=== PATIENT | male | born 1945 | race Caucasian/White ===

== ENCOUNTER 2017-03-07 08:46 | Emergency (ER) | payer MEDICARE, BC ==
[2017-03-07] MEDS ORDERED: Morphine INJ* 4 MG/ML 1 ML CARPUJECT IV ONE ×2 (09:19→09:24)
[2017-03-07] MEDS ORDERED: Ondansetron INJ* 2 MG/ML VIAL ONE (09:19)
[2017-03-07] MEDS ORDERED: Ondansetron INJ* 2 MG/ML VIAL IV ONE (09:24)
[2017-03-07] MEDS ORDERED: NS 0.9% 1000 ML* 1,000 ML IV ONE (09:28)
[2017-03-07] MEDS ORDERED: fentaNYL* 50 MCG/ML 2 ML VIAL (100 MCG VIAL) IV SLOW PU ONE (10:02)
[2017-03-07] MEDS ORDERED: Midazolam* 1 MG/ML 2 ML VIAL (2 MG) IV ONE (10:02)
[2017-03-07] MEDS ORDERED: Naloxone* 0.4 MG/ML 10 ML VIAL ONE (10:11)
[2017-03-07] MEDS ORDERED: Flumazenil* 0.1 MG/ML 5 ML MDV ONE (10:11)
[2017-03-07] MEDS ORDERED: Midazolam* 1 MG/ML 10 ML VIAL (10 MG) IV ONE (10:16)
--- NOTE | 2017-03-07 10:19 | RAD ---
HISTORY: Fall, injury to left shoulder COMPARISONS: None VIEWS: 2, frontal and frontal oblique views of the left shoulder FINDINGS: BONE DENSITY: Normal. BONES: There is no displaced fracture. JOINTS: There is no arthropathy. ALIGNMENT: There is anterior-inferior dislocation of the left humerus with respect to the glenoid fossa. SOFT TISSUES: Unremarkable. OTHER FINDINGS: None. IMPRESSION: LEFT SHOULDER DISLOCATION
--- NOTE | 2017-03-07 11:36 | RAD ---
HISTORY: Status post reduction COMPARISONS: March 07, 2017 at 10:00 AM VIEWS: 3, frontal internal rotation and lateral views of the left shoulder 11:25 AM FINDINGS: BONE DENSITY: Normal. BONES: There is no displaced fracture. JOINTS: There is no arthropathy. ALIGNMENT: There is been interval reduction of the left shoulder dislocation. SOFT TISSUES: Unremarkable. OTHER FINDINGS: None. IMPRESSION: INTERVAL REDUCTION OF LEFT SHOULDER DISLOCATION. NO DISPLACED FRACTURE ON THE SUBMITTED VIEWS. IF SYMPTOMS PERSIST, RECOMMEND REPEAT IMAGING
[2017-03-07 12:23] VITALS: BP 163/73
--- NOTE | 2017-03-08 17:43 | ED ---
Aquiles Messina Angela, scribed for Amarjit Dias MD on 03/07/17 at 0934 . Upper Extremity Pain - HPI Summary HPI Summary: This pt is a 71 y/o male presenting to [facility] via EMS c/o left shoulder pain s/p fall this morning at approximately 08:30. Pt reports he was walking and slipped on ice, subsequently falling on his left shoulder. He denies head strike or LOC. Pt denies neck pain, headache. Pt states he took his metoprolol this morning. - History of Current Complaint Chief Complaint: EDExtremityUpper Stated Complaint: LT ARM INJURY/FALL Time Seen by Provider: 03/07/17 09:06 Hx Obtained From: Patient Mechanism Of Injury: Fall From Height Of: Onset/Duration: Started Hours Ago, Traumatic, Still Present Timing: Lasting Hours Severity Currently: Severe Pain Location: Shoulder - left Aggravating Factor(s): Movement Alleviating Factor(s): Rest Associated Signs & Symptoms: Positive: Negative - Allergies/Home Medications Allergies/Adverse Reactions: Allergies Allergy/AdvReac Type Severity Reaction Status Date / Time No Known Allergies Allergy Verified 03/01/14 14:52 Home Medications: Home Medications Amlodipine Besylate-Benazepril [Lotrel 5-20 mg] 1 cap PO DAILY 03/07/17 [ History Confirmed 03/07/17] Aspirin EC Low Dose* [Ecotrin EC Low Dose 81 MG*] 81 mg PO DAILY 03/07/17 [ History Confirmed 03/07/17] Nitroglycerin TAB 0.4 MG* 0.4 mg SL Q5M PRN 03/07/17 [History Confirmed 03/07/17 ] PMH/Surg Hx/FS Hx/Imm Hx Endocrine/Hematology History: Denies: Hx Diabetes Cardiovascular History: Reports: Hx Hypertension Infectious Disease History: No Infectious Disease History: Denies: History Other Infectious Disease, Traveled Outside the [place] in Last 30 Days - Family History Known Family History: Positive: None - Social History Alcohol Use: None Substance Use Type: Reports: None Smoking Status (MU): Never Smoked Tobacco Review of Systems Negative: Fever, Chills Eyes: Negative ENT: Negative Cardiovascular: Negative Respiratory: Negative Musculoskeletal: Other - left shoulder pain Negative: Other - neck pain Negative: Headache All Other Systems Reviewed And Are Negative: Yes Physical Exam - Summary Physical Exam Summary: VITAL SIGNS: Reviewed. GENERAL: Patient is a well-developed and nourished male. Patient is not in any acute respiratory distress. HEAD AND FACE: No signs of trauma. No ecchymosis, hematomas or skull depressions. No sinus tenderness. EYES: PERRLA, EOMI x 2, No injected conjunctiva, no nystagmus. EARS: Hearing grossly intact. Ear canals and tympanic membranes are within normal limits. MOUTH: Oropharynx within normal limits. NECK: Supple, trachea is midline, no adenopathy, no JVD, no carotid bruit, no c- spine tenderness, neck with full ROM. CHEST: Symmetric, no tenderness at palpation LUNGS: Clear to auscultation bilaterally. No wheezing or crackles. CVS: Regular rate and rhythm, S1 and S2 present, no murmurs or gallops appreciated. ABDOMEN: Soft, non-tender. No signs of distention. No rebound no guarding, and no masses palpated. Bowel sounds are normal. EXTREMITIES: no edema, no cyanosis or clubbing. LUE: Pt has a left shoulder deformity consistent with dislocation. Pt has decreased ROM secondary to pain. NEURO: Alert and oriented x 3. No acute neurological deficits. Speech is normal and follows commands. SKIN: Diaphoretic and warm. Triage Information Reviewed: Yes Vital Signs On Initial Exam: Initial Vitals Temp Pulse Resp BP Pulse Ox 98.5 F 41 22 124/49 91 03/07/17 08:57 03/07/17 08:57 03/07/17 08:57 03/07/17 08:57 03/07/17 08:57 Vital Signs Reviewed: Yes Procedures - Procedure Summary Procedure Summary: PROCEDURE NOTE: Procedural Sedation Indications: LEft shoulder dislocation [place] Protocol: a timeout was performed and the correct patient and site were verified Consent: The risks and benefits of monitored anesthesia care, including the risk of aspiration, deep sedation requiring airway management including possible intubation, nausea and vomiting and the risks of not performing the procedure, including severe pain and inability to complete the procedure, were all discussed with the patient. The alternatives of performing the procedure, including local anesthesia and IV analgesia, also discussed. The patient has a ride home available. ASA Class: II-mild systemic disease Pre-anesthesia evaluation, including history, exam, and informed consent is documented in the ED note above. Monitoring: Continuous monitoring of heart rate, respiratory rate, pulse oximetry and ETCO2. Supplemental oxygen prior to and during procedure via nasal cannula. Resuscitation equipment available at the bedside during sedation. The patient received Versed and Fentanyl and dosages were recorded on the sedation form. The patient was recovered from the sedation without complication or incident. Patient returned to pre-sedation level of awareness. The monitoring was discontinued at this time. Post-anesthesia evaluation: Respiratory function, cardiovascular function, temperature, and mental status did return to pre-anesthetic state. Pain is controlled. - Joint Reduction Joint Reduction Site: shoulder (L) Conscious Sedation: Yes Reduction Attempts: 1 Pre-Procedure NV Exam: Yes Post Joint Reduction Film: joint reduced Diagnostics - Vital Signs Vital Signs Temp Pulse Resp BP Pulse Ox 03/07/17 09:29 18 03/07/17 08:57 98.5 F 41 22 124/49 91 - Laboratory Lab Statement: Any lab studies that have been ordered have been reviewed, and results considered in the medical decision making process. - Radiology Left shoulder XR Xray Interpretation: Positive (See Comments) - IMPRESSION: Left shoulder dislocation. Dr. Dias has reviewed this radiology report. Radiology Interpretation Completed By: Radiologist Left shoulder XR s/p reduction Xray Interpretation: Positive (See Comments) - IMPRESSION: Interval reduction of left shoulder dislocation. No displaced fracture on the submitted views. If symptoms persist, recommend repeat imaging. Dr. Dias had reviewed this radiology report. Radiology Interpretation Completed By: Radiologist - EKG 09:28 Cardiac Rate: Bradycardia EKG Rhythm: Sinus Bradycardia - at 41 bpm EKG Interpretation: No ST elevation. Inverted T wave in V2, V4-V6. Re-Evaluation - Re-Evaluation First Eval Re-Evaluation Time: 10:30 Comment: Joint reduction done by GAGE Motley. Course/Dx - Course Course Of Treatment: This pt is a 71 y/o male presenting to [facility] via EMS c/o left shoulder pain s/p fall this morning at approximately 08:30. Pt reports he was walking and slipped on ice, subsequently falling on his left shoulder. He denies head strike or LOC. Pt denies neck pain, headache. Pt states he took his metoprolol this morning. XR of the left shoulder shows positive shoulder dislocation. In the ED course, the pt was given morphine for the pain. After confirmation of the dislocation, I decided to reduce the dislocation with conscious sedation. The pt agreed and signed the consent. Please see conscious sedation note. He was given fentanyl and versed. We were able to reduce the dislocation without complications. Pt tolerated the procedure well. At this point the pt is alert and oriented x3. The pt has no pain. The XR s/p reduction corroborated the reduction. At this point pt is alert and oriented x3, with normal cognition. Pt will be discharged with son. The pt was given instructions for status post sedation observation. - Diagnoses Differential Diagnosis/HQI/PQRI: Positive: Bursitis, Contusion, Fracture (Closed ), Strain, Sprain Provider Diagnoses: Dislocation of left shoulder joint, status post reduction Discharge - Discharge Plan Condition: Stable Disposition: HOME Patient Education Materials: Shoulder Dislocation (ED), Procedural Sedation (ED ) Referrals: [facility] [place] PHYSICIAN REFERRAL [Outside] Cherelle Bello MD [Primary Care Provider] - 3 Days Additional Instructions: Please follow up with your primary care provider. RETURN TO THE ED FOR ANY WORSENING SYMPTOMS. The documentation as recorded by the Aquiles pizano Angela accurately reflects the service I personally performed and the decisions made by Arun ferrer Walter, MD.
== END 2017-03-07 12:25 | disposition home or self-care (01) ==
LOC: ED 08:46
DX: S43.005A Unspecified dislocation of left shoulder joint, initial encounter (principal); W00.0XXA Fall on same level due to ice and snow, initial encounter; Y93.01 Activity, walking, marching and hiking; Y92.9 Unspecified place or not applicable
CPT/HCPCS: 23650; 93005; 96361; 96374; 96375; 99284; J2250; J2270; J2310; J2405; J3010

== ENCOUNTER 2018-08-01 09:10 | Day surgery (SDC) | payer MEDICARE, BC ==
[~2018-08-01 09:10] MED LIST: Acetaminophen TAB* 325 MG PO PRN; Buffered Lidocaine 1% SYRIN* 1 ML/SYRINGE INTRADERM ONE
[2018-08-01] MEDS ORDERED: Midazolam* 1 MG/ML 2 ML VIAL (2 MG) ONE (11:08)
[2018-08-01] MEDS ORDERED: Phenylephrine OPHTH SOL 2.5%* 2 ML ONE (11:21)
[2018-08-01] MEDS ORDERED: Povidone Iodine 5% OPTH* 30 ML BTL ONE (11:21)
[2018-08-01] MEDS ORDERED: acetaZOLAMIDE TAB* 250 MG ONE (11:21)
[2018-08-01] MEDS ORDERED: Lidocaine 2% EPI 1:200000 MPF*10-20 ML VIAL ONE (11:21)
[2018-08-01] MEDS ORDERED: Ketorolac 0.5% OPHTH (NF) 0.5 % 5 ML BTL ONE (11:21)
[2018-08-01] MEDS ORDERED: Lidocaine 1%** 5 ML VIAL ONE (11:21)
[2018-08-01] MEDS ORDERED: Neomycin/Polymy/Dex OPTH.SUSP* MAXITROL 0.1% 5 ML ONE (11:21)
[2018-08-01] MEDS ORDERED: Cyclopentolate 1% OPTH.SOL* 2 ML BTL ONE (11:21)
[2018-08-01] MEDS ORDERED: Proparacaine 0.5% OPHTH.SOL* 15 ML BTL ONE (11:21)
[2018-08-01 12:15] VITALS: BP 161/57
--- NOTE | 2018-08-01 13:14 | OP ---
DATE OF OPERATION: 08/01/2018. DATE OF : 1945. SURGEON: Patrick Gurrola M.D. PREOPERATIVE DIAGNOSIS: Cataract right eye. POSTOPERATIVE DIAGNOSIS: Cataract right eye. OPERATIVE PROCEDURE: Extracapsular cataract extraction with intraocular lens implant right eye. PROCEDURE: The patient was brought to the operating room after being given 1/2% Alcaine with epineph rine drops in the preoperative area. The eye was prepped and draped in the usual sterile fashion. S terile drape and eyelid speculum were placed. Again, topical 1/2% Alcaine with epinephrine was given . A paracentesis incision was made at the 9 o'clock position with the No.75 blade. Clear cornea inc ision 2.2 x 2.2-mm was created at the 12 o'clock position starting at the anterior limbus using the 2 .2-mm keratome. The anterior chamber was irrigated with 0.4 mL of 1% non-preservative intracameral l idocaine and filled with DisCoVisc. A capsulorrhexis was completed using the cystotome and the Utrat a forceps. Hydrodissection was performed with balanced salt solution. The lens nucleus was removed w ith the Phacoemulsification handpiece without incident. Cortex was removed with the irrigation-aspir ation handpiece. The capsular bag was re-inflated using DisCoVisc and an [id number] 23.5 implant was ins erted with the shooter. The irrigation-aspiration handpiece was used to remove all residual DisCoVis c. The eye was refilled with balanced salt solution and the wound checked and found to be watertight . Topical Maxitrol drops were given. [id number]/[facility] #: [id number]
== END 2018-08-01 12:13 | disposition home or self-care (01) ==
LOC: OREAST 09:10
PROVIDERS: ATTEND Specialist
DX: H25.11 Age-related nuclear cataract, right eye (principal); I10 Essential (primary) hypertension; Z86.711 Personal history of pulmonary embolism; Z86.718 Personal history of other venous thrombosis and embolism; I25.10 Atherosclerotic heart disease of native coronary artery without angina pectoris; Z95.5 Presence of coronary angioplasty implant and graft
CPT/HCPCS: A9270-GY; J2250; V2632

== ENCOUNTER 2018-08-15 07:12 | Day surgery (SDC) | payer MEDICARE, BC ==
[2018-08-15] MEDS ORDERED: Midazolam* 1 MG/ML 2 ML VIAL (2 MG) ONE (08:48)
[2018-08-15 10:10] VITALS: BP 159/58
--- NOTE | 2018-08-15 10:22 | OP ---
OPERATIVE NOTE: DATE OF OPERATION: 08/15/18 DATE OF : [birth year] SURGEON: Patrick Gurrola M.D. PREOPERATIVE DIAGNOSIS: Cataract, left eye. POSTOPERATIVE DIAGNOSIS: Cataract, left eye. OPERATIVE PROCEDURE: Extracapsular cataract extraction with intraocular lens implant, left eye. PROCEDURE: The patient was brought to the operating room after being given 1/2% Alcaine with epineph rine drops in the preoperative area. The eye was prepped and draped in the usual sterile fashion. S terile drape and eyelid speculum were placed. Again, topical 1/2% Alcaine with epinephrine was given . A paracentesis incision was made at the 3 o'clock position with the No.75 blade. Clear cornea inc ision 2.2 x 2.2-mm was created at the 6 o'clock position starting at the anterior limbus using the 2. 2-mm keratome. The anterior chamber was irrigated with 0.4 mL of 1% non-preservative intracameral li docaine and filled with DisCoVisc. A capsulorrhexis was completed using the cystotome and the Utrata forceps. Hydrodissection was performed with balanced salt solution. The lens nucleus was removed wi th the Phacoemulsification handpiece without incident. Cortex was removed with the irrigation-aspira tion handpiece. The capsular bag was re-inflated using DisCoVisc and an [id number] 22 implant was insert ed with the shooter. The irrigation-aspiration handpiece was used to remove all residual DisCoVisc. The eye was refilled with balanced salt solution and the wound checked and found to be watertight. Topical Maxitrol drops were given. [id number]/[facility] #: [id number]
[2018-08-15] MEDS ORDERED: Phenylephrine OPHTH SOL 2.5%* 2 ML ONE (12:23)
[2018-08-15] MEDS ORDERED: Ketorolac 0.5% OPHTH (NF) 0.5 % 5 ML BTL ONE (12:23)
[2018-08-15] MEDS ORDERED: Lidocaine 1% MPF ** 5 ML VIAL ONE (12:23)
[2018-08-15] MEDS ORDERED: Proparacaine 0.5% OPHTH.SOL* 15 ML BTL ONE (12:23)
[2018-08-15] MEDS ORDERED: Neomycin/Polymy/Dex OPTH.SUSP* MAXITROL 0.1% 5 ML ONE (12:23)
[2018-08-15] MEDS ORDERED: Cyclopentolate 1% OPTH.SOL* 2 ML BTL ONE (12:23)
[2018-08-15] MEDS ORDERED: Povidone Iodine 5% OPTH* 30 ML BTL ONE (12:23)
[2018-08-15] MEDS ORDERED: Lidocaine 2% w/ EPI 1:200,000* 20 ML VIAL ONE (12:23)
[2018-08-15] MEDS ORDERED: acetaZOLAMIDE TAB* 250 MG ONE (12:23)
[2018-08-17] MEDS ORDERED: Acetaminophen TAB* 325 MG PO PRN (05:00)
== END 2018-08-15 10:10 | disposition home or self-care (01) ==
LOC: OREAST 07:12
PROVIDERS: ATTEND Specialist
DX: H25.12 Age-related nuclear cataract, left eye (principal); I10 Essential (primary) hypertension; I25.10 Atherosclerotic heart disease of native coronary artery without angina pectoris; Z95.5 Presence of coronary angioplasty implant and graft; E78.5 Hyperlipidemia, unspecified; Z86.711 Personal history of pulmonary embolism
CPT/HCPCS: A9270-GY; J2250; V2632

== ENCOUNTER 2019-02-08 11:47 | Emergency (ER) | payer MEDICARE, BC ==
--- OUTSIDE RECORDS SUMMARY | 2019-02-08 12:17 | XMS REPORT | Continuity of Care Document ---
:1945 External Reference #:[id number] Author Name Angus Gonsalez M.D., [facility], [facility] (transmitted by agent of provider Flory Block) Address [address] 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 Family Medicine Problems Active Problems Provider Date Chronic ischemic heart disease Angus Gonsalez M.D., [facility], Onset: 2013 FASNC Ascending aorta dilatation Angus Gonsalez M.D., [facility], Onset: 01/28/2019 FASRI Atherosclerotic heart disease of Angus Gonsalez M.D., [facility], Onset: 2015 [place] coronary artery without angina FASNC pectoris Social History Type Date Description Comments Sex Unknown Cigarette Use Quit - Age 63 ETOH Use consumes 3-4 beers per week Tobacco Use Start: Unknown End: Patient is a former smoker Unknown Recreational Drug Use Never Used Drugs Smoking Status Reviewed: 01/28/19 Patient is a former smoker Exercise Type/Frequency Bikes 4 times a week Stationary Allergies, Adverse Reactions, Alerts Description No Known Drug Allergies Medications Active Medications SIG Qnty Indications Ordering Provider Date Doxazosin Mesylate 1 by mouth Unknown 4mg every day Tablets Lopressor 1 by mouth 180tabs Unknown 25mg Tablets twice a day Nitrostat one sl q5min up 25tabs Unknown 0.4mg Tablets to 3 doses as Sub needed Aspir-81 1 by mouth Unknown 81mg Tablets DR every day Dapsone 1 by mouth 30tabs Unknown 100mg Tablets every day Amlodipine 1 by mouth Unknown Besylate/Benazepril every day Hydrochloride 10-20mg Capsules Rosuvastatin Calcium 1 by mouth Unknown 20mg every day Tablets Medications Administered in Office Medication SIG Qnty Indications Ordering Provider Date Technetium TC 99M Angus Gonsalez M.D., 01/14/2019 Tetrofosmin, Per Unit Dose COLLIN PATEL Up To 40 Millicuries Injection Technetium TC 99M Angus Gonsalez M.D., 01/14/2019 Tetrofosmin, Per Unit Dose COLLIN PATEL Up To 40 Millicuries Injection Technetium TC 99M Angus Gonsalez M.D., 07/30/2012 Tetrofosmin, Per Unit Dose COLLIN PATEL Up To 40 Millicuries Injection Immunizations Description No Information Available Vital Signs Date Vital Result Comment 01/28/2019 9:15am Height 70 inches 5'10" Weight 234.00 lb with shoes Heart Rate 50 /min BP Systolic Sitting 138 mmHg Rue large cuff BP Diastolic Sitting 62 mmHg Rue large cuff BP Systolic Standing 132 mmHg Rue large cuff BP Diastolic Standing 60 mmHg Rue large cuff Respiratory Rate 16 /min BMI (Body Mass Index) 33.6 kg/m2 Ejection Fraction 55-60% ECHO 12/24/2018 11/28/2017 2:04pm Weight 233.00 lb Heart Rate 89 /min BP Systolic Sitting 190 mmHg Rue reg cuff BP Diastolic Sitting 80 mmHg Rue reg cuff BP Systolic Standing 160 mmHg Rue reg cuff BP Diastolic Standing 70 mmHg Rue reg cuff Results Description No Information Available Procedures Date Code Description Status 01/28/2019 92140 EKG Tracing & Interpretation Completed 01/14/2019 90844 Stress Test Completed 01/14/2019 66892 Myocardial Perfusion Imaging Tomographic (Spect) Multiple Completed Studies 12/24/2018 61083 ECHO Transthoracic, Real-Time 2D With Doppler And Color Completed Flow 12/24/2018 76617 ECHO Transthoracic, Real-Time 2D With Doppler And Color Completed Flow Medical Devices Description No Information Available Encounters Description No Information Available Assessments Date Code Description Provider 01/28/2019 I77.810 Thoracic aortic ectasia Angus Gonsalez M.D., [facility], [facility] 01/14/2019 I25.10 Atherosclerotic heart disease of Angus Gonsalez M.D., [facility], [place] coronary artery without FASNC angina pectoris 12/24/2018 I25.10 Atherosclerotic heart disease of Angus Jonathan Gonsalez M.D., [facility], [place] coronary artery without FASNC angina pectoris 12/24/2018 I25.10 Atherosclerotic heart disease of Traveling ECHO 2 [place] coronary artery without angina pectoris Plan of Treatment 01/28/2019 - Angus Gonsalez M.D., [facility], [id number] Thoracic aortic ectasiaComments:As discussed, I feel your heart and aorta are stable. Please avoid lifting more than 30 lbs and continue to exercise. Please discuss with your PCP regarding other possible causes for your shortness of breath.Follow up: one year after echo Functional Status Description No Information Available Mental Status Description No Information Available Referrals Description No Information Available
--- OUTSIDE RECORDS SUMMARY | 2019-02-08 12:17 | XMS REPORT | Summary of Care ---
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 Aspirin 81 MG Oral Take 81 mg by mouth 0 Active Tab DAILY. nitroglycerin Place 1 Tab under 1 Bottle 1 12/20/2016 Active (NITROSTAT) 0.4 MG tongue EVERY FIVE Sublingual SL MINUTES NEEDED TabIndications: for chest pain. Coronary artery disease, angina presence unspecified, unspecified vessel or lesion type, unspecified whether hoopa or transplanted heart, H/O heart artery stent amLODIPine Take 1 Cap by mouth 90 Cap 2 09/03/2018 Active Besy-Benazepril HCl DAILY. 10-20 MG Oral CapIndications: Benign essential HTN doxazosin (CARDURA) 4 TAKE 1 TABLET BY 90 Tab 1 10/05/2018 Active MG Oral MOUTH EVERY DAY TabIndications: Benign non-nodular prostatic hyperplasia without lower urinary tract symptoms metoprolol TAKE 1 TABLET BY 180 Tab 1 10/05/2018 Active (LOPRESSOR) 25 MG MOUTH TWICE A DAY Oral TabIndications: Benign essential HTN Rosuvastatin Calcium Take 1 Tab by mouth 90 Tab 1 12/25/2018 Active (CRESTOR) 20 MG Oral DAILY. Replaced TabIndications: atorvastatin Coronary artery disease involving hoopa coronary artery of hoopa heart without angina pectoris levofloxacin Take 1 Tab by mouth 7 Tab 0 02/04/2019 Active (LEVAQUIN) 750 MG DAILY 0700 on Empty Oral TabIndications: Stomach. Community acquired pneumonia, unspecified laterality documented as of this encounter (statuses as of 02/04/2019) Active Problems Problem Noted Date Brachial plexopathy 09/06/2017 Dislocation, shoulder closed, left, subsequent encounter 09/04/2017 Dislocated shoulder, left, sequela 06/22/2017 Dislocation, shoulder, left, initial encounter 06/22/2017 Numbness of left hand 06/22/2017 Benign essential HTN 01/07/2015 BMI 32.0-32.9,adult 11/30/2011 Overview: sustained wt reduction with portion control and sustained routine exercise. Set realistic goal of 1# wt reduction /week set 10 week goals. CAD (coronary artery disease) 11/05/2010 Overview: 11/17/09: S/p placement of 2.5 x 23 mm Xience drug eluting stent to the first diagonal branch of the LAD / Dr. Velacso Dyslipidemia 11/05/2010 Atherosclerosis of arteries of extremities 06/21/2010 Hip pain, bilateral 04/21/2010 PAD (peripheral artery disease) 04/21/2010 Overview: 04/19/10: ABIs IMPRESSION: Ankle brachial indices and pulse-volume recordings indicate bilateral lower extremity mild arterial occlusive disease at rest. The patient was able to walk the [facility] hall for approximately five minutes and did stop due to bilateral hip pain. Pulse-volume recordings and ankle brachial indices post-exercise shows no change in the pulse-volume recordings or decreases in the absolute pressures indicating a normal exercise ankle brachial index study. 12/16/09: MR Angio Abdomen and Pelvis IMPRESSION Impression: Occlusion of the right superficial femoral artery. Stenosis or proximal occlusion of the left superficial femoral artery. Mild atherosclerotic aortoiliac disease. Decreased perfusion to the left kidney. Encounter for therapeutic drug monitoring 08/19/2009 History of pulmonary embolism 06/24/2009 History of DVT in adulthood 03/03/2009 Bilateral club feet documented as of this encounter (statuses as of 02/04/2019) Resolved Problems Problem Noted Date Resolved Date Splenic infarction 11/05/2010 10/28/2013 documented as of this encounter (statuses as of 02/04/2019) Immunizations Name Administration Dates Next Due Influenza (IM) Preservative Free 11/18/2013 Influenza Vaccine High Dose 12/10/2018, 12/25/2017, 11/10/2016, 12/11/2014 Influenza Vaccine Whole 11/17/2015 PNEUMOCOCCAL POLYSACCHARIDE VACCINE 12/20/2016 Pneumococcal Conjugate(13 Valent) 12/22/2015 ZOSTER (SHINGRIX) VACCINE 09/11/2018, 07/11/2018 ZOSTER (ZOSTAVAX) VACCINE 07/11/2018 documented as of this encounter Social History Tobacco Use Types Packs/Day Years Used Date Former Smoker Cigarettes 41 Quit: 09/24/2008 Smokeless Tobacco: Never Used Alcohol Use Drinks/Week oz/Week Comments Yes 0.0 occasionally a beer. Sex Assigned at Date Recorded Not on file Job Start Date Occupation Industry Not on file Not on file Not on file Travel History Travel Start Travel End No recent travel history available. documented as of this encounter Last Filed Vital Signs Vital Sign Reading Time Taken Comments Blood Pressure 134/58 02/04/2019 1:45 PM EST Pulse 91 02/04/2019 1:45 PM EST Temperature 37.8 02/04/2019 1:45 PM C (100.1 EST F) Respiratory Rate - - Oxygen Saturation 91% 02/04/2019 2:51 PM EST Inhaled Oxygen Concentration - - Weight 106.1 kg (234 lb) 02/04/2019 1:45 PM EST Height 177.8 cm (5' 10") 02/04/2019 1:45 PM EST Body Mass Index 33.58 02/04/2019 1:45 PM EST documented in this encounter Patient Instructions Patient InstructionsRonda Hilliard NP - 02/04/2019 1:40 PM ESTChest xray today. Start levaquin 750 mg - one tablet once daily for 7 days. (Ask pharmacists about starting this afternoon and then taking again in the morning). Rest and fluids. Hot tea with lemon, honey, salt water gargles, cough drops. Tylenol and motrin for pain fever. Follow up on or Monday. If anything gets worse, instead of better - shortness of breath, chest pain, palpitations - go to the ER. documented in this encounter Progress Notes Ronda Hilliard NP - 02/04/2019 1:40 PM EST PATIENT: Curtis Wick : 1945 DATE OF SERVICE: 02/04/2019 CHIEF COMPLAINT: Chief Complaint Patient presents with Sick cough, coughing up green mucus, sinus congestion, sob comes and goes Subjective HISTORY OF PRESENT ILLNESS: Curtis Wick is a 73-y.o. male. HPI Here for sick visit. He went to a [place] for a game on Friday 01/26, thinks he got sick there. Started to feel worse Monday morning 01/28. Sore throat, cough, productive green. Low grade fever. +Malaise and fatigue. No body aches. Shortness of breath. Congestion. Symptoms not getting better or worse. He thinks he is getting better and then will get worse again. Not sleeping at night because of coughing. 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 He has history of dvt and PE 10 years ago - thought from traveling. On coumadin for a time, not now. No recent travel or surgeries. 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 Vega Unspecified essential hypertension Family History Problem Relation Age of Onset High Cholesterol Father Hypertension Father Stroke Father No Known Problems Sister No Known Problems Child No Known Problems Child No Known Problems Child Diabetes No family history Cancer No family history Anesth Problems No family history Arthritis No family history Clotting Disorder No family history Heart Disease No family history Kidney Disease No family history Thyroid Disease No family history Current Outpatient Medications Medication Sig amLODIPine Besy-Benazepril HCl 10-20 MG Oral Cap Take 1 Cap by mouth DAILY. Aspirin 81 MG Oral Tab Take 81 mg by mouth DAILY. dapsone (AVLOSULFON) 100 MG Oral Tab Take 1 Tab by mouth DAILY. doxazosin (CARDURA) 4 MG Oral Tab TAKE 1 TABLET BY MOUTH EVERY DAY levofloxacin (LEVAQUIN) 750 MG Oral Tab Take 1 Tab by mouth DAILY 0700 on Empty Stomach. metoprolol (LOPRESSOR) 25 MG Oral Tab TAKE 1 TABLET BY MOUTH TWICE A DAY nitroglycerin (NITROSTAT) 0.4 MG Sublingual SL Tab Place 1 Tab under tongue EVERY FIVE MINUTES NEEDED for chest pain. Rosuvastatin Calcium (CRESTOR) 20 MG Oral Tab Take 1 Tab by mouth DAILY. Replaced atorvastatin No current facility-administered medications for this visit. No Known Allergies Social History Socioeconomic History Marital status: Spouse name: Not on file Number of children: Not on file Years of education: Not on file Highest education level: Not on file Occupational History Not on file Social Needs Financial resource strain: Not on file Food insecurity Worry: Not on file Inability: Not on file Transportation needs Medical: Not on file Non-medical: Not on file Tobacco Use Smoking status: Former Smoker Years: 40.00 Types: Cigarettes Last attempt to quit: 09/24/2008 Years since quittin.3 Smokeless tobacco: Never Used Substance and Sexual Activity Alcohol use: Yes Alcohol/week: 0.0 standard drinks Comment: occasionally a beer. Drug use: No Sexual activity: Not Currently Partners: Female Lifestyle Physical activity Days per week: Not on file Minutes per session: Not on file Stress: Not on file Relationships Social connections Talks on phone: Not on file Gets together: Not on file Attends sikhism service: Not on file Active member of club or organization: Not on file Attends meetings of clubs or organizations: Not on file Relationship status: Not on file Intimate partner violence Fear of current or ex partner: Not on file Emotionally abused: Not on file Physically abused: Not on file Forced sexual activity: Not on file Other Topics Concern Back Care Not Asked Bike Helmet Not Asked Blood Transfusions No Caffeine Concern Not Asked Exercise Yes Comment: exercise bike Hobby Hazards Not Asked International Travel Not Asked Service Not Asked Occupational Exposure Not Asked Seat Belt Not Asked Self-Exams Not Asked Sleep Concern Not Asked Special Diet Not Asked Stress Concern Not Asked Weight Concern Not Asked Social History Narrative 3 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 Pets: dogs/cats//chickens/ducks REVIEW OF SYSTEMS: Review of Systems Constitutional: Positive for chills, fever and malaise/fatigue. HENT: Positive for congestion and sore throat. Negative for ear discharge, ear pain and sinus pain. Respiratory: Positive for cough, sputum production and shortness of breath. Cardiovascular: Negative for chest pain and palpitations. Gastrointestinal: Positive for nausea. Negative for vomiting. Musculoskeletal: No body aches Neurological: Positive for weakness. Negative for dizziness and headaches. Objective PHYSICAL EXAM: VITALS: BP 134/58 (BP Location: Left arm, Patient Position: Sitting) | Pulse 91 | Temp 100.1 F (37.8 C) (Tympanic) | Ht 5' 10" (1.778 m) | Wt 234 lb (106.1 kg) | SpO2 91% | BMI 33.58 kg/m Body mass index is 33.58 kg/m . Physical Exam Vitals signs and nursing note reviewed. Constitutional: General: He is not in acute distress. Appearance: Normal appearance. He is well-developed. He is not ill-appearing or toxic-appearing. HENT: Right Ear: Tympanic membrane, ear canal and external ear normal. No mastoid tenderness. Tympanic membrane is not erythematous, retracted or bulging. Left Ear: Tympanic membrane, ear canal and external ear normal. No mastoid tenderness. Tympanic membrane is not erythematous, retracted or bulging. Nose: Nose normal. No mucosal edema. Right Sinus: No maxillary sinus tenderness or frontal sinus tenderness. Left Sinus: No maxillary sinus tenderness or frontal sinus tenderness. Mouth/Throat: Mouth: Mucous membranes are moist. Pharynx: Oropharynx is clear. Uvula midline. No oropharyngeal exudate or posterior oropharyngeal erythema. Tonsils: No tonsillar exudate. Swellin+ on the right. 1+ on the left. Eyes: Conjunctiva/sclera: Conjunctivae normal. Cardiovascular: Rate and Rhythm: Normal rate and regular rhythm. Heart sounds: Murmur present. Systolic murmur present with a grade of 2/6. Pulmonary: Effort: Pulmonary effort is normal. Breath sounds: Decreased breath sounds present. No wheezing, rhonchi or rales. Musculoskeletal: Right lower leg: No edema. Left lower leg: No edema. Lymphadenopathy: Head: Right side of head: No submental, submandibular or tonsillar adenopathy. Left side of head: No submental, submandibular or tonsillar adenopathy. Cervical: No cervical adenopathy. Right cervical: No superficial cervical adenopathy. Left cervical: No superficial cervical adenopathy. Upper Body: Right upper body: No supraclavicular adenopathy. Left upper body: No supraclavicular adenopathy. Neurological: Mental Status: He is alert. Psychiatric: Behavior: Behavior is cooperative. ASSESSMENT / IMPRESSION: ICD-9-CM ICD-10-CM 1. Community acquired pneumonia, unspecified laterality 486 J18.9 XR CHEST 2 VIEW PA AND LATERAL (STANDARD) levofloxacin (LEVAQUIN) 750 MG Oral Tab Plan 1. Community acquired pneumonia, unspecified laterality Chest xray today, treat with levaquin, return for reeval on or Monday. To ER for worsening symptoms or shortness of breath. - XR CHEST 2 VIEW PA AND LATERAL (STANDARD); Future - levofloxacin (LEVAQUIN) 750 MG Oral Tab; Take 1 Tab by mouth DAILY 0700 on Empty Stomach. Dispense: 7 Tab; Refill: 0 Author: Ronda Hilliard NP 02/04/2019 14:52 documented in this encounter Plan of Treatment Date Type Specialty Care Team Description 02/08/2019 Office Visit Family Practice Ronda Hilliard NP [address] [place] [address] [phone] 02/26/2019 Lab Internal Medicine 06/25/2019 Office Visit Family Practice Shalini King MD [address] [place] [address] [phone] Name Type Priority Associated Diagnoses Date/Time XR CHEST 2 VIEW PA Imaging Routine Community acquired 02/04/2019 2:40 PM AND LATERAL pneumonia, unspecified EST (STANDARD) laterality Name Type Priority Associated Diagnoses Order Schedule XR CHEST 2 VIEW PA Imaging Routine Community acquired Expected: 02/04/2019, AND LATERAL pneumonia, unspecified Expires: 02/04/2020 (STANDARD) laterality Health Maintenance Due Date Last Done Comments DTaP/Tdap/Td Vaccines (1956 Tdap) DEPRESSION SCREENING 06/26/2019 06/25/2018 FALL RISK ASSESSMENT 06/26/2019 06/25/2018, 06/25/2018 LIPID DISORDER SCREENING 12/26/2019 12/25/2018, 12/18/2018, 12/18/2017, Additional history exists Colonoscopy 04/23/2023 04/22/2013 (Declined) AAA SCREENING/SURVEILLANCE Completed 12/20/2016, 12/22/2015, 12/19/2014, Additional history exists PNEUMOCOCCAL 65+YRS Completed 12/20/2016, 12/22/2015 HEPATITIS C SCREENING Completed 06/13/2017 HEPATITIS A IMMUNIZATION Aged Out No longer eligible SERIES based on patient's age to complete this topic HPV IMMUNIZATION SERIES Aged Out No longer eligible based on patient's age to complete this topic MENINGOCOCCAL VACCINE IMM Aged Out No longer eligible based on patient's age to complete this topic documented as of this encounter Goals Goal Patient Goal Associated Recent Patient-Stated? Author Type Problems Progress Blood Pressure Blood 134/58 No Christine, < 150/90 Pressure (02/04/2019 Shalini Lambert, 1:45 PM EST) Note: This is an individualized treatment (blood pressure) goal for Curtis Wick: Displayed above (on the left) is your goal for blood pressure control. Your most recent blood pressure is also shown above, on the right. You should try to achieve blood pressures that are lower than your goal listed above (on the left). Weight loss vs. 18 Lifestyle 5 (02/04/2019 1:45 PM No Shalini King, mo max (lbs) >= 10 EST) Note: This is an individualized lifestyle goal for Curtis Wick: Your body mass index (BMI) is more than 30. You should lose weight. A reasonable starting goal is to lose 10 pounds. Displayed above is how many pounds you have lost thus far towards your 10 pound weight loss goal. Take all prescribed medications as Self-management Shalini Rodarte MD directed Note: This is an individualized self-management goal for Curtis Wick: Please take all prescribed medications as directed. 1. Do not skip doses. If you cannot afford your medications, talk with your doctor. 2. Use a pill reminder system such as a pill box if needed. Your pharmacist can help you with this. 3. Contact your Pharmacy 5 days before your medication runs out. If you cannot take your medications for any reasons, talk with your doctor. 4. Please bring all of your medication bottles and inhalers (or a list of all your medications/inhalers) with you to every visit. Potential barriers to meeting all of your care plan goals will continue to be addressed on an ongoing basis. documented as of this encounter Implants Implanted Type Area Clay Miner Device Shelf Model / Identifier Expiration Date Serial / Lot 03.13 Xience - [id number] Diagonal GUALLPA VASCULAR [id number] / Implanted: Qty: 1 on 11/17/2009 at [facility] [id number] / [id number] documented as of this encounter Results Not on filedocumented in this encounter Visit Diagnoses Diagnosis Community acquired pneumonia, unspecified laterality documented in this encounter Insurance Payer Benefit Plan / Subscriber ID Effective Dates Phone Address Type Group MEDICARE MEDICARE PART A & xxxxxxxxxxx 2011-Present Medicare B [employer] xxxxxxxxxxxx 2016-Present [employer] Guarantor Name Account Type Relation to Date of Phone Billing Address Patient Curtis Wick Personal/Family 1945 [address] (Home) [place] [phone] (Work) documented as of this encounter
--- OUTSIDE RECORDS SUMMARY | 2019-02-08 12:17 | XMS REPORT | Summary of Care ---
:1945 Author Organization [facility] Address [address] [facility] [place] [address] Care Team Providers Name Role Phone Shalini King MD Primary Care Provider Reason for Visit Reason Comments Hypertension Encounter Details Date Type Department Care Team Description 12/25/2018 Office Visit [facility] Christine, Benign essential HTN ( Primary Dx); Practice Shalini Lambert MD Coronary artery disease involving [place] coronary artery of [place] heart without angina pectoris; [address] [facility] [place] [address] [place] [address] [phone] Allergies No Known Allergiesdocumented as of this encounter (statuses as of 12/25/2018) Medications Medication Sig Dispensed Refills Start End Date Status Date dapsone Take 1 Tab by 0 Active (AVLOSULFON) 100 mouth DAILY. MG Oral Tab Aspirin 81 MG Oral Take 81 mg by 0 Active Tab mouth DAILY. nitroglycerin Place 1 Tab 1 Bottle 1 Active (NITROSTAT) 0.4 MG under tongue 7 Sublingual SL EVERY FIVE TabIndications: MINUTES Coronary artery NEEDED for chest disease, angina pain. presence unspecified, unspecified vessel or lesion type, unspecified whether [place] or transplanted heart, H/O heart artery stent amLODIPine Take 1 Cap by 90 Cap 2 Active Besy-Benazepril mouth DAILY. 9 HCl 10-20 MG Oral CapIndications: Benign essential HTN doxazosin TAKE 1 TABLET BY 90 Tab 1 Active (CARDURA) 4 MG MOUTH EVERY DAY 9 Oral TabIndications: Benign non-nodular prostatic hyperplasia without lower urinary tract symptoms metoprolol TAKE 1 TABLET BY 180 Tab 1 Active (LOPRESSOR) 25 MG MOUTH TWICE A 9 Oral DAY TabIndications: Benign essential HTN Rosuvastatin Take 1 Tab by 90 Tab 1 Active Calcium (CRESTOR) mouth DAILY. 9 20 MG Oral Replaced TabIndications: atorvastatin Coronary artery disease involving [place] coronary artery of [place] heart without angina pectoris atorvastatin TAKE 1 TABLET BY 90 Tab 1 12/26/19 Discontinued (LIPITOR) 20 MG MOUTH EVERY DAY 9 19 (Side Effect) Oral TabIndications: Dyslipidemia, Mixed hyperlipidemia documented as of this encounter (statuses as of 12/25/2018) Active Problems Problem Noted Date Brachial plexopathy [...] diagonal branch of the LAD / Dr. Hart Dyslipidemia 11/05/2010 Atherosclerosis of arteries of extremities 06/21/2010 Hip pain, bilateral 04/21/2010 PAD (peripheral artery disease) 04/21/2010 Overview: 04/19/10: ABIs IMPRESSION: Ankle brachial indices and pulse-volume recordings indicate bilateral lower extremity mild arterial occlusive disease at rest. The patient was able to walk the [facility] halls for approximately five minutes and did stop [...] as of this encounter (statuses as of 12/25/2018) Resolved Problems Problem Noted Date Resolved Date Splenic infarction 11/05/2010 10/28/2013 documented as of this encounter (statuses as of 12/25/2018) Immunizations Name Administration Dates Next Due Influenza [...] Sign Reading Time Taken Comments Blood Pressure 137/60 12/25/2018 8:22 AM EST Pulse 60 12/25/2018 8:01 AM EST Temperature - - Respiratory Rate - - Oxygen Saturation 91% 12/25/2018 8:01 AM EST Inhaled Oxygen Concentration - - Weight 108.4 kg (239 lb) 12/25/2018 8:01 AM EST Height 177.8 cm (5' 10") 12/25/2018 8:01 AM EST Body Mass Index 34.29 12/25/2018 8:01 AM EST documented in this encounter Patient Instructions Patient InstructionsShalini King MD - 12/25/2018 8:00 AM ESTStop atorvastatin and switch to Rosuvastatin Please check fasting laboratory tests in 2 months. Hopefully you will have less muscle fatigue. Continue your other medications. Follow a low salt diet, minimize caffeine. documented in this encounter Progress Notes Shalini King MD - 12/25/2018 8:00 AM EST Nursing Notes: Ronda Prabhakar LPN 12/25/2018 8:09 AM Signed Chief Complaint Patient presents with Hypertension Principal Developer: Dr Welch. Embedder: Dr Gonsalez Vascular: Dr William Chief Complaint: Curtis Wick is a 73-y.o. male who presents for hypertension History of Present Illness/ROS: Here for follow up of hypertension and elevated fasting glucose. I increased his amlodipine/benazepril in past visits Impaired fasting glucose : Latest A1C is totally normal, no diabetes nor prediabetes Yesterday he had an echocardiogram and has an upcoming stress test, then sees Dr Gonsalez in a week. He has shortness of breath with exertion He is using his exercise bike. Knees ache often also Review of Systems - General ROS: negative for - chills or fever Respiratory ROS: no cough, shortness of breath, or wheezing Cardiovascular ROS: no chest pain or dyspnea on exertion Gastrointestinal ROS: negative for - abdominal pain or change in bowel habits Neurological ROS: no TIA or stroke symptoms Muscles tire easily on atorvastatin He has gotten both Shingrix at his pharmacy Lab on 12/18/2018 Component Date Value Ref Range Status Glycohemoglobin A1C 12/18/2018 4.2 <=5.6 % Final Normal*: <=5.6% Pre Diabetes* Risk: 5.7-6.4% Diabetes* Risk: >=6.5% Glycemic Goals for Adult Diabetes*: <7.0% *(Adult Ranges)[place] [employer], Standards of Medical Care in Diabetes, 2018 Cholesterol 12/18/2018 119 <200 mg/dl Final HDL Cholesterol 12/18/2018 41 >40 mg/dl Final Triglycerides 12/18/2018 74 <150 mg/dl Final LDL Cholesterol 12/18/2018 63 <100 MG/DL Final Cholesterol / HDL Ratio 12/18/2018 2.9 RATIO Final LDL / HDL Ratio 12/18/2018 1.5 Final Non-HDL Cholesterol 12/18/2018 78 0 - 130 MG/DL Final Sodium 12/18/2018 142 134 - 145 mmol/L Final Potassium 12/18/2018 4.6 3.5 - 5.1 mmol/L Final Chloride 12/18/2018 110* 98 - 107 mmol/L Final CO2 12/18/2018 22 22 - 30 mmol/L Final Calcium 12/18/2018 8.8 8.3 - 10.1 mg/dl Final Albumin 12/18/2018 3.9 3.5 - 5.0 g/dl Final BUN 12/18/2018 23* 9 - 20 mg/dl Final Creatinine 12/18/2018 1.2 0.8 - 1.5 mg/dl Final Glucose 12/18/2018 121* 70 - 99 mg/dl Final Total Protein 12/18/2018 7.0 6.3 - 8.2 g/dl Final Total Bilirubin 12/18/2018 0.9 0.0 - 1.1 MG/DL Final AST 12/18/2018 42 17 - 59 U/L Final ALT 12/18/2018 45 21 - 72 U/L Final Alkaline Phosphatase 12/18/2018 57 40 - 150 U/L Final eGFR 12/18/2018 60 See Interpretation Below ml/min/1.73ml Sq Final Estimated GFR Interpretation: Above 60ml/min/1.73m2 = Normal Renal Function 30-59 ml/min/1.73m2 = Stage 3 Chronic Kidney Disease 15-29 ml/min/1.73m2 = Stage 4 Chronic Kidney Disease Less than 15 ml/min/1.73m2 = Stage 5 Chronic Kidney Disease The GFR value is calculated using the Modification of Diet in Renal Disease ( MDRD) Study Equation which can be found at: https://www.kidney.org/content/tzhs-fmioh-zcupimjw BUN/Creatinine Ratio 12/18/2018 19 6 - 22 RATIO Final Anion Gap 12/18/2018 10 3 - 11 mmol/L Final A/G Ratio 12/18/2018 1.3 0.8 - 2.0 ratio Final WBC Count 12/18/2018 6.60 4.23 - 9.07 K/uL Final RBC Count 12/18/2018 4.18* 4.30 - 5.89 M/UL Final Hemoglobin 12/18/2018 13.1* 13.7 - 17.5 g/dL Final Hematocrit 12/18/2018 42.1 40.1 - 51.0 % Final MCV 12/18/2018 100.7* 79.0 - 92.2 FL Final MCH 12/18/2018 31.3 25.7 - 32.2 PG Final MCHC 12/18/2018 31.1* 32.3 - 36.5 g/dL Final Platelet Count 12/18/2018 198 163 - 337 K/uL Final MPV 12/18/2018 10.0 9.4 - 12.4 FL Final RDW 12/18/2018 14.1 11.6 - 14.4 % Final Neutrophil % 12/18/2018 70.8* 34.0 - 67.9 % Final Lymphocyte % 12/18/2018 15.3* 21.8 - 53.1 % Final Monocyte % 12/18/2018 9.2 5.3 - 12.2 % Final Eosinophil % 12/18/2018 3.3 0.8 - 7.0 % Final Basophil % 12/18/2018 0.6 0.2 - 1.2 % Final nRBC % 12/18/2018 0.0 0.0 - 0.2 % Final Neutrophil # 12/18/2018 4.67 1.78 - 5.38 K/UL Final Lymphocyte # 12/18/2018 1.01* 1.32 - 3.57 K/UL Final Monocyte # 12/18/2018 0.61 0.30 - 0.82 K/UL Final Eosinophil # 12/18/2018 0.22 0.04 - 0.54 K/UL Final Basophil # 12/18/2018 0.04 0.01 - 0.08 K/UL Final Immature Gran % 12/18/2018 0.8* 0.0 - 0.4 % Final Immature Gran # 12/18/2018 0.05* 0.00 - 0.03 K/uL Final NRBC # 12/18/2018 0.00 0.00 - 0.12 K/uL Final Past Medical History: Diagnosis Date Bilateral club feet BMI 32.0-32.9,adult CAD (coronary artery disease) 11/17/2009 stenting of diagnal lot# [id number] Dr Gonsalez, [place] Coronary artery disease has cardiac stent, placed 2009 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 Vega Unspecified essential hypertension Past Surgical History: Procedure Laterality Date ANGIOPLASTY STENT CORONARY VIA GROIN 11/17/2009 Procedure:ANGIOPLASTY STENT CORONARY; Surgeon:AARON HART; Location:[facility] ; Laterality:N/A; CORONARY ART/ATTEMPTED VIA RADIAL CHANGE SITE TORT FEMORAL/ SUZANNE TO DIAG/RT FEMORAL ART & PERCLOSE NASAL DX PROC NEC age 3-4, nasal surgery UNLISTED PROCEDURE,MUSCULOSKELE born with double club feet: bilateral foot surgery VASECTOMY Current Outpatient Medications: amLODIPine Besy-Benazepril HCl 10-20 MG Oral Cap, Take 1 Cap by mouth DAILY., Disp: 90 Cap, Rfl: 2 Aspirin 81 MG Oral Tab, Take 81 mg by mouth DAILY., Disp: , Rfl: dapsone (AVLOSULFON) 100 MG Oral Tab, Take 1 Tab by mouth DAILY. , Disp : , Rfl: doxazosin (CARDURA) 4 MG Oral Tab, TAKE 1 TABLET BY MOUTH EVERY DAY, Disp: 90 Tab, Rfl: 1 metoprolol (LOPRESSOR) 25 MG Oral Tab, TAKE 1 TABLET BY MOUTH TWICE A DAY, Disp: 180 Tab, Rfl: 1 nitroglycerin (NITROSTAT) 0.4 MG Sublingual SL Tab, Place 1 Tab under tongue EVERY FIVE MINUTES NEEDED for chest pain., Disp: 1 Bottle, Rfl: 1 Rosuvastatin Calcium (CRESTOR) 20 MG Oral Tab, Take 1 Tab by mouth DAILY. Replaced atorvastatin, Disp: 90 Tab, Rfl: 1 No Known Allergies Social History Socioeconomic History Marital status: Spouse name: Not on file Number of children: Not on file Years of education: Not on file Highest education level: Not on file Occupational History Not on file Social Needs Financial resource strain: Not on file Food insecurity: Worry: Not on file Inability: Not on file Transportation needs: Medical: Not on file Non-medical: Not on file Tobacco Use Smoking status: Former Smoker Years: 40.00 Types: Cigarettes Last attempt to quit: 09/24/2008 Years since quittin.2 Smokeless tobacco: Never Used Substance and Sexual Activity Alcohol use: Yes Alcohol/week: 0.0 standard drinks Comment: occasionally a beer. 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 Pets: dogs/cats//chickens/ducks Family History Problem Relation Age of Onset [...] family history Thyroid Disease No family history Chest CT screen 12/27/16: Unremarkable low-dose screening CT thorax. Lung-RADS Assessment Category: 1. - Negative XR LUMBAR SPINE MIN 4 VIEWS (STANDARD) Narrative: Procedure(s): XR LUMBAR SPINE MIN 4 VIEWS (STANDARD) Date of service: 06/25/2018 8:32 AM Provided clinical information: 73 years, Male, "low back pain" Procedure and materials: 5 views of the lumbar spine Comparison studies: None. Observations: Mild degenerative narrowing of the right sacroiliac joint. Incidental note of atherosclerotic changes in the abdominal aorta. Some retained fecal material in the colon. No focal osseous lesions. No fractures or subluxation. Impression: IMPRESSION: Mild degenerative narrowing of the right sacroiliac joint. Urgency: Routine. This is a routine medical imaging report. Recommendation: No specific imaging recommendation. Signed by Abena Green on 06/29/2018 11:08 AM PHYSICAL EXAMINATION: BP 137/60 (BP Location: Left arm, Patient Position: Sitting) | Pulse 60 | Ht 5 ' 10" (1.778 m) | Wt 239 lb (108.4 kg) | SpO2 91% | BMI 34.29 kg/m Physical Examination: General appearance - alert, well appearing, and in no distress Mental status - alert, oriented to person, place, and time, normal mood, behavior, speech, dress, motor activity, and thought processes Eyes - pupils equal, sclera anicteric Neck - supple, no cervical or supraclavicular adenopathy, carotids upstroke normal bilaterally, no bruits, thyroid exam: thyroid is normal in size without nodules or tenderness, no neck masses palpated. Chest/Lungs - clear to auscultation, no wheezes, rales or rhonchi, symmetric air entry, good aeration Heart - normal rate, regular rhythm, normal S1, S2, no murmurs, rubs, clicks or gallops Abdomen - soft, non tender Neurological - alert, oriented, normal speech, no gross focal findings or movement disorder noted, normal gait Extremities - dorsalis pedis pulses normal, trace to trace left ankle pedal edema, ASSESSMENT/PLAN: ICD-9-CM ICD-10-CM 1. Benign essential HTN 401.1 I10 2. Coronary artery disease involving [place] coronary artery of [place] heart without angina pectoris 414.01 I25.10 Rosuvastatin Calcium (CRESTOR) 20 MG Oral Tab LIPID PROFILE COMPREHENSIVE METABOLIC PANEL 3. Muscle fatigue 729.89 M62.89 CREATINE KINASE Hypertension control is fairly good, continue to monitor A1C was normal We will see if his muscle fatigue improves by switching statin from atorvastatin to rosuvastatin. Recheck fasting laboratory tests in 2 months. 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 Curtis requested a note that he can no longer work so his son can use thisas a medical reason to leave his current job. I agree mcc is a good idea, but I cannot say it is due to disability today. I explained that with no new problems or acute injury, that is not something I can just so. He can see what Dr Gonsalez says from a cardiac standpoint, however. Patient Instructions Stop atorvastatin and switch to Rosuvastatin Please check fasting laboratory tests in 2 months. Hopefully you will have less muscle fatigue. Continue your other medications. Follow a low salt diet, minimize caffeine. Author: Shalini King MD 12/25/2018 08:24 documented in this encounter Plan of Treatment Date Type Specialty Care Team Description 02/26/2019 Lab Internal Medicine 06/25/2019 Office Visit [facility] Shalini King MD [address] [place] [address] [phone] Name Type Priority Associated Diagnoses Order Schedule LIPID PROFILE Lab Routine Coronary artery disease Expected: 02/24/2019 involving [place] (Approximate), coronary artery of Expires: 12/26/2019 [place] heart without angina pectoris COMPREHENSIVE METABOLIC Lab Routine Coronary artery disease Expected: 02/24 PANEL involving [place] (Approximate), coronary artery of Expires: 12/26/2019 [place] heart without angina pectoris CREATINE KINASE Lab Routine Muscle fatigue Expected: 02/24/2019 (Approximate), Expires: 12/26/2019 Health Maintenance Due Date Last Done Comments DEPRESSION SCREENING 06/26/2019 06/25/2018 FALL RISK ASSESSMENT 06/26/2019 06/25/2018, 06/25/2018 LIPID DISORDER SCREENING 12/26/2019 12/25/2018, 12/18/2018, 12/18/2017, Additional history exists COLONOSCOPY SCREENING 04/23/2023 04/22/2013 (Declined) AAA SCREENING/SURVEILLANCE Completed 12/20/2016, 12/22/2015, 12/19/2014, Additional history exists PNEUMOCOCCAL 65+YRS Completed 12/20/2016, 12/22/2015 HEPATITIS C SCREENING Completed 06/13/2017 HPV IMMUNIZATION SERIES Aged Out No longer eligible based on patient's age to complete this topic MENINGOCOCCAL VACCINE IMM Aged Out No longer eligible based on patient's age to complete this topic documented as of this encounter Goals Goal Patient Goal Associated Recent Patient-Stated? Author Type Problems Progress Blood Pressure Blood 137/60 No Christine, < 150/90 Pressure (12/25/2018 Shalini Lambert, 8:22 AM EST) Note: This is an individualized treatment (blood pressure) goal for Curtis Wick: Displayed above (on the left) is your goal for blood pressure control. Your most recent blood pressure is also shown above, on the right. You should try to achieve blood pressures that are lower than your goal listed above (on the left). Weight loss vs. 18 Lifestyle 0 (12/25/2018 8:01 AM Shalini Rodarte mo max (lbs) >= 10 EST) Note: This is an individualized lifestyle goal for Curtis Wick: Your body mass index (BMI) is more than 30. You should lose weight. A reasonable starting goal is to lose 10 pounds. Displayed above is how many pounds you have lost thus far towards your 10 pound weight loss goal. Take all prescribed medications as Self-management No Shalini King MD directed Note: This is an individualized [...] of this encounter Implants Implanted Type Area International Account Manager Device Shelf Model / Identifier Expiration Date Serial / Lot 2 [employer]ience - [id number] Diagonal GUALLPA VASCULAR [id number] / Implanted: Qty: 1 on 11/17/2009 at [facility] [id number] / [id number] documented as of this encounter Results Not on filedocumented in this encounter Visit Diagnoses Diagnosis Benign essential HTN - Primary Essential hypertension, benign Coronary artery disease involving [place] coronary artery of [place] heart without angina pectoris Muscle fatigue Other musculoskeletal symptoms referable to limbs documented in this encounter Insurance Payer Benefit Plan / Subscriber ID Effective Dates Phone Address Type Group MEDICARE MEDICARE PART A & xxxxxxxxxxx 2011-Present Medicare B [employer] xxxxxxxxxxxx 2016-Present [employer] Guarantor Name Account Type Relation to Date of Phone Billing Address Patient Curtis Wick Personal/Family 1945 [address] (Home) [place], [place] [phone] [id number] (Work) documented as of this encounter
[2019-02-08 12:55] LABS: ABS Eosinophils 0.2 10^3/ul (0-0.6); ABS Lymphocytes 1.1 10^3/ul (1.0-4.8); ABS Monocytes 0.7 10^3/ul (0-0.8); ABS Neutrophils 6.7 10^3/ul (1.5-7.7); Hematocrit 35 % (42-52); Hemoglobin 11.6 g/dL (14.0-18.0); Lymphocyte % 12.2 %; Mean Corpuscular HGB Conc 33 g/dL (31-36); Mean Corpuscular Hemoglobin 31 pg (27-31); Mean Corpuscular Volume 94 fL (80-94); Platelet Count 245 10^3/uL (150-450); Red Blood Count 3.75 10^6 /uL (4.18-5.48); Red Cell Distribution Width 15 % (10-15); White Blood Count 8.7 10^3/uL (3.5-10.8)
--- NOTE | 2019-02-08 13:06 | ED ---
Shortness of Breath - HPI Summary HPI Summary: Patient is a 73 y/o M presenting to the ED for a chief complaint of shortness of breath for the last week. Patient is present with his son. Patient notes having a productive cough with yellow phlegm and shortness of breath with exertion which has been improving. He denies chest pain or fever. He denies any aggravating or alleviating factors. Patient was previously seen at [facility] on 02/04/19 and had a chest x-ray performed that was read on 02/08 that showed pneumonia. On 02/04/19, patient was prescribed Levaquin for 7 days which he has been taking. His PCP recommended he come to ED for abnormal CXR. He state since starting abx his symptoms have improved. PMHx is significant for HTN and HLD, but he denies a history of COPD or asthma. He is a former smoker. - History of Current Complaint Chief Complaint: EDShortnessOfBreath Time Seen by Provider: 02/08/19 12:27 Hx Obtained From: Patient Onset/Duration: Sudden Onset, Lasting Days, Still Present Timing: Constant Current Severity: Moderate Dyspnea At: Exertion Aggravating Factors: Nothing Alleviating Factors: Nothing Associated Signs & Symptoms: Cough (Productive) - Allergy/Home Medications Allergies/Adverse Reactions: Allergies Allergy/AdvReac Type Severity Reaction Status Date / Time No Known Allergies Allergy Verified 02/08/19 12:04 Home Medications: Home Medications Levofloxacin TAB* [Levaquin TAB*] 750 mg PO DAILY 02/08/19 [History Confirmed ] Rosuvastatin (NF) [Crestor (NF)] 20 mg PO DAILY 02/08/19 [History Confirmed 04/25] PMH/Surg Hx/FS Hx/Imm Hx Previously Healthy: Yes Endocrine/Hematology History: Denies: Hx Diabetes Cardiovascular History: Reports: Hx Coronary Artery Disease, Hx Hypercholesterolemia, Hx Hypertension Denies: Hx Pacemaker/ICD Respiratory History: Reports: Hx Pulmonary Embolism - 2009 Denies: Hx Asthma, Hx Chronic Obstructive Pulmonary Disease (COPD) History: Denies: Hx Renal Disease Sensory History: Reports: Hx Cataracts - both eye, Hx Contacts or Glasses - reading glasses Denies: Hx Legally Blind, Hx Deafness, Hx Hearing Aid Opthamlomology History: Reports: Hx Cataracts - both eye, Hx Contacts or Glasses - reading glasses Denies: Hx Legally Blind EENT History: Denies: Hx Deafness Psychiatric History: Denies: Hx Panic Disorder - Cancer History Hx Chemotherapy: No - Surgical History Surgical History: Yes Surgery Procedure, Year, and Place: HEART STENT 2009 [facility]. 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 nose surgery as a baby Hx Anesthesia Reactions: No Infectious Disease History: No Infectious Disease History: Denies: History Other Infectious Disease, Traveled Outside the [place] in Last 30 Days - Family History Known Family History: Negative: Cardiac Disease, Hypertension, Diabetes - Social History Occupation: Employed Full-time Alcohol Use: Weekly Alcohol Amount: few beers a week Hx Substance Use: No Substance Use Type: Reports: None Hx Tobacco Use: Yes Smoking Status (MU): Former Smoker Amount Used/How Often: smoked for 40-45 years, 2 ppd Review of Systems Negative: Fever Negative: Chest Pain Positive: Shortness Of Breath - With exertion, Cough - Productive with yellow phlegm All Other Systems Reviewed And Are Negative: Yes Physical Exam - Summary Physical Exam Summary: Constitutional: Well-developed, Well-nourished, Alert. (-) Distressed Skin: Warm, Dry HENT: Normocephalic; Atraumatic Eyes: Conjunctiva normal Neck: Musculoskeletal ROM normal neck. (-) JVD, (-) Stridor, (-) Nuchal rigidity Cardio: Rhythm regular, rate normal, Heart sounds normal; Intact distal pulses; Radial pulses are 2+ and symmetric. (-) Murmur Pulmonary/Chest wall: Effort normal. (-) Respiratory distress, (-) Wheezes, (-) Rales. Left lower lobe rhonchi. Abd: Soft, (-) tenderness, (-) Distension, (-) Guarding, (-) Rebound Musculoskeletal: (-) Edema Lymph: (-) Cervical adenopathy Neuro: Alert, Oriented x3 Psych: Mood and affect Normal Triage Information Reviewed: Yes Vital Signs On Initial Exam: Initial Vitals Temp Pulse Resp BP Pulse Ox 98.5 F 70 18 181/75 92 02/08/19 12:00 02/08/19 12:00 02/08/19 12:00 02/08/19 12:00 02/08/19 12:00 Vital Signs Reviewed: Yes Procedures - Sedation Patient Received Moderate/Deep Sedation with Procedure: No Diagnostics - Vital Signs Vital Signs Temp Pulse Resp BP Pulse Ox 02/08/19 12:00 98.5 F 70 18 181/75 92 - Laboratory Lab Results: Lab Results 02/08/19 Range/Units 12:42 WBC 8.7 (3.5-10.8) 10^3/uL RBC 3.75 L (4.18-5.48) 10^6 /uL Hgb 11.6 L (14.0-18.0) g/dL Hct 35 L (42-52) % MCV 94 (80-94) fL MCH 31 (27-31) pg MCHC 33 (31-36) g/dL RDW 15 (10-15) % Plt Count 245 (150-450) 10^3/uL MPV 7.0 L (7.4-10.4) fL Neut % (Auto) 77.0 % Lymph % (Auto) 12.2 % Harmon % (Auto) 8.3 % Eos % (Auto) 2.0 % Baso % (Auto) 0.5 % Absolute Neuts (auto) 6.7 (1.5-7.7) 10^3/ul Absolute Lymphs (auto) 1.1 (1.0-4.8) 10^3/ul Absolute Monos (auto) 0.7 (0-0.8) 10^3/ul Absolute Eos (auto) 0.2 (0-0.6) 10^3/ul Absolute Basos (auto) 0.0 (0-0.2) 10^3/ul Absolute Nucleated RBC 0.0 10^3/ul Nucleated RBC % 0.0 Result Diagrams: 02/08/19 12:42 02/08/19 12:42 Lab Statement: Any lab studies that have been ordered have been reviewed, and results considered in the medical decision making process. - Radiology Chest X-ray Radiology Interpretation Completed By: Radiologist Summary of Radiographic Findings: Chest X-ray IMPRESSION: 1. LEFT LOWER LOBE INFILTRATE AND SMALL PLEURAL EFFUSION. RECOMMEND FOLLOW-UP CHEST X-RAYS TO RESOLUTION. 2. COPD. Reviewed by Dr. Sage. Re-Evaluation - Re-Evaluation First Eval Re-Evaluation Time: 13:40 Change: Unchanged Comment: At 13:40, patient is ambulating with an oxygen saturation of 89%. He states he does not feel short of breath. Patient is agreeable to a duoneb. Course/Dx - Course Course Of Treatment: 73-year-old male recently diagnosed pneumonia presents with cough. - Physical for mild hypoxia at 92%. On ambulation dec to 89% but denies SOB. Chest x-ray shows a left lower lobe pneumonia and small pleural effusion. Labs w/o leukocytosis. CUR 65 score: 1. - given duoneb, O2 sat up to 96%. Feels fine, would like to leave. Sent home w albuterol Rx PRN cough/ wheezing. - will follow up w PCP for follow up XRay - Diagnoses Provider Diagnoses: Pneumonia Discharge ED - Sign-Out/Discharge Documenting (check all that apply): Patient Departure - Discharge - Discharge Plan Condition: Stable Disposition: HOME Prescriptions: Albuterol HFA INHALER* [Ventolin HFA Inhaler*] 2 puff INH Q4H PRN 30 Days #1 mdi PRN Reason: Wheezing Patient Education Materials: Bacterial Pneumonia (DC) Referrals: Shalini King MD [Primary Care Provider] - Additional Instructions: You were seen in the emergency department for pneumonia. Your chest x-ray showed a left-sided pneumonia. Please get a repeat chest x-ray in one week. Please continue your antibiotics. Use an inhaler as needed. Please follow up with your primary care doctor in next 2-3 days and return to emergency department for trouble breathing, continued fevers, chest pain, or worsening or concerning symptoms. It was a pleasure taking care of you today. - Billing Disposition and Condition Condition: STABLE Disposition: Home - Attestation Statements Document Initiated by Phuc: Yes Documenting Tiffaniibe: Karen Marie Provider For Whom Phuc is Documenting (Include Credential): Britney Sage MD Scribe Attestation: I, Karen Marie, scribed for Britney Sage MD on 02/08/19 at 1453. Scribe Documentation Reviewed: Yes Provider Attestation: The documentation as recorded by the Karen pizano accurately reflects the service I personally performed and the decisions made by me, Britney Sage MD Status of Scribe Document: Viewed
[2019-02-08 13:18] LABS: Albumin 3.6 g/dL (3.2-5.2); Albumin/Globulin Ratio 1.1 (1-3); BUN/Creatinine Ratio 19.6 (8-20); Calcium 8.6 mg/dL (8.6-10.3); EGFR African American 97.9 (>60); EGFR Non-African American 80.9 (>60); Globulin 3.2 g/dL (2-4); Potassium 4.2 mmol/L (3.5-5.0); Total Bilirubin 0.9 mg/dL (0.2-1.0); Total Protein 6.8 g/dL (6.4-8.9)
[2019-02-08] MEDS ORDERED: Albuterol/Ipratropium NEB.SOL* Albuterol 2.5 MG/Ipratropium 0.5 MG 3 ML INH ONE (13:40)
[2019-02-08 15:38] VITALS: BP 172/82
== END 2019-02-08 15:15 | disposition home or self-care (01) ==
LOC: ED 11:47
DX: J18.9 Pneumonia, unspecified organism (principal); R06.02 Shortness of breath; R05 Cough; I25.10 Atherosclerotic heart disease of native coronary artery without angina pectoris; E78.00 Pure hypercholesterolemia, unspecified; I10 Essential (primary) hypertension; Z95.5 Presence of coronary angioplasty implant and graft; Z87.891 Personal history of nicotine dependence
CPT/HCPCS: 36415; 71046; 80053; 85025; 99283; A9270-GY

== ENCOUNTER 2019-04-18 17:58 | Emergency (ER) | payer MEDICARE, BC ==
--- OUTSIDE RECORDS SUMMARY | 2019-04-18 18:22 | XMS REPORT | Summary of Care ---
:1945 Author Organization [facility] Address [address] [place] [address] Care Team Providers Name Role Phone Shalini King MD Primary Care Provider Reason for Visit Reason Comments Check Up SOB, sorre throat , cough with mucus light green/yellow , since last monday Encounter Details Date Type Department Care Team Description 04/18/2019 Office Visit [facility], Acute bronchitis, unspecified organism (Primary Dx); Practice MD Yisel Sore throat [address] [place] [address] [place] [address] [phone] Allergies No Known Allergiesdocumented as of this encounter (statuses as of 04/18/2019) Medications Medication Sig Dispensed Refills Start End [...] unspecified vessel or lesion type, unspecified whether quileute or transplanted heart, H/O heart artery stent amLODIPine Take 1 Cap by 90 Cap 2 Active Besy-Benazepril mouth DAILY. 9 HCl 10-20 MG Oral CapIndications: Benign essential HTN Rosuvastatin Take 1 Tab by 90 Tab 1 Active Calcium (CRESTOR) mouth DAILY. 9 20 MG Oral Replaced TabIndications: atorvastatin Coronary artery disease involving quileute coronary artery of quileute heart without angina pectoris metoprolol TAKE 1 TABLET BY 180 Tab 1 Active (LOPRESSOR) 25 MG MOUTH TWICE A 0 Oral DAY TabIndications: Benign essential HTN doxazosin TAKE 1 TABLET BY 90 Tab 1 Active (CARDURA) 4 MG MOUTH EVERY DAY 0 Oral TabIndications: Benign non-nodular prostatic hyperplasia without lower urinary tract symptoms levofloxacin Take 1 Tab by 7 Tab 0 04/18/19 Discontinued (LEVAQUIN) 750 MG mouth DAILY 0700 9 20 (Therapy Oral on Empty Completed) TabIndications: Stomach. Community acquired pneumonia, unspecified laterality documented as of this encounter (statuses as of 04/18/2019) Active Problems Problem Noted Date Brachial plexopathy [...] diagonal branch of the LAD / Dr. Velasco Dyslipidemia 11/05/2010 Atherosclerosis of arteries of extremities 06/21/2010 Hip pain, bilateral 04/21/2010 PAD (peripheral artery disease) 04/21/2010 Overview: 04/19/10: ABIs IMPRESSION: Ankle brachial indices and pulse-volume recordings indicate bilateral lower extremity mild arterial occlusive disease at rest. The patient was able to walk the [facility] hall for approximately five minutes and did stop due to bilateral hip pain. Pulse-volume recordings and ankle brachial indices post-exercise shows no change in the pulse-volume recordings or decreases in the absolute pressures indicating a normal exercise ankle brachial index study. 11/10/10: MR Angio Abdomen and Pelvis IMPRESSION Impression: Occlusion of the right superficial femoral artery. Stenosis or proximal occlusion of the left superficial femoral artery. Mild atherosclerotic aortoiliac disease. Decreased perfusion to the left kidney. Encounter for therapeutic drug monitoring 08/19/2009 History of pulmonary embolism 06/24/2009 History of DVT in adulthood 03/03/2009 Bilateral club feet documented as of this encounter (statuses as of 04/18/2019) Resolved Problems Problem Noted Date Resolved Date Splenic infarction 11/05/2010 10/28/2013 documented as of this encounter (statuses as of 04/18/2019) Immunizations Name Administration Dates Next Due Influenza [...] Assigned at Date Recorded Not on file documented as of this encounter Last Filed Vital Signs Vital Sign Reading Time Taken Comments Blood Pressure 180/80 04/18/2019 5:07 PM EDT Pulse 82 04/18/2019 5:07 PM EDT Temperature 37.4 04/18/2019 5:07 PM C (99.4 EDT F) Respiratory Rate - - Oxygen Saturation 92% 04/18/2019 5:07 PM EDT Inhaled Oxygen Concentration - - Weight 106.9 kg (235 lb 11.2 oz) 04/18/2019 5:07 PM EDT Height 165.1 cm (5' 5") 04/18/2019 5:07 PM EDT Body Mass Index 39.22 04/18/2019 5:07 PM EDT documented in this encounter Progress Notes Yisel Selby MD - 04/18/2019 5:00 PM EDT PATIENT: Curtis Wick : 1945 DATE OF SERVICE: 04/18/2019 Subjective SUBJECTIVE: Curtis Wick is a 74-y.o. male who presents for evaluation of nasal congestion , productive cough, SOB and sore throat. Symptoms began 1 week ago and are gradually worsening since that time. Past history is significant for recent pneumonia. No recent travel. 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 He is not aware of any contact with individual who traveled abroad, but he interacts with a lot of people Past Medical History: Diagnosis Date ? Bilateral club feet ? BMI 32.0-32.9,adult ? CAD (coronary artery disease) 11/17/2009 stenting of diagnal lot# [id number] Dr Gonsalez [place] ? Coronary artery disease has cardiac stent, placed 2009 ? 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 Dvt femoral (deep venous thrombosis) ([facility]) 2008 ? Low back pain chronic ? Pulmonary embolism ([facility]) 2008 felt to be after travel ? PVD (peripheral vascular disease) ([facility]) followed by Dr. Vega ? Unspecified essential hypertension Family History Problem Relation Age of Onset ? High Cholesterol Father ? Hypertension Father ? Stroke Father ? No Known Problems Sister ? No Known Problems Child ? No Known Problems Child ? No Known Problems Child ? Diabetes No family history ? Cancer No family history ? Anesth Problems No family history ? Arthritis No family history ? Clotting Disorder No family history ? Heart Disease No family history ? Kidney Disease No family history ? Thyroid Disease No family history Current Outpatient Medications Medication Sig ? amLODIPine Besy-Benazepril HCl 10-20 MG Oral Cap Take 1 Cap by mouth DAILY. ? Aspirin 81 MG Oral Tab Take 81 mg by mouth DAILY. ? dapsone (AVLOSULFON) 100 MG Oral Tab Take 1 Tab by mouth DAILY. ? doxazosin (CARDURA) 4 MG Oral Tab TAKE 1 TABLET BY MOUTH EVERY DAY ? metoprolol (LOPRESSOR) 25 MG Oral Tab TAKE 1 TABLET BY MOUTH TWICE A DAY ? nitroglycerin (NITROSTAT) 0.4 MG Sublingual SL Tab Place 1 Tab under tongue EVERY FIVE MINUTES NEEDED for chest pain. ? Rosuvastatin Calcium (CRESTOR) 20 MG Oral Tab Take 1 Tab by mouth DAILY. Replaced atorvastatin No current facility-administered medications for this visit. No Known Allergies Social History Socioeconomic History ? Marital status: Spouse name: Not on file ? Number of children: Not on file ? Years of education: Not on file ? Highest education level: Not on file Occupational History ? Not on file Social Needs ? Financial resource strain: Not on file ? Food insecurity Worry: Not on file Inability: Not on file ? Transportation needs Medical: Not on file Non-medical: Not on file Tobacco Use ? Smoking status: Former Smoker Years: 40.00 Types: Cigarettes Last attempt to quit: 09/24/2008 Years since quittin.5 ? Smokeless tobacco: Never Used Substance and Sexual Activity ? Alcohol use: Yes Alcohol/week: 0.0 standard drinks Comment: occasionally a beer. ? Drug use: No ? Sexual activity: Not Currently Partners: Female Lifestyle ? Physical activity Days per week: Not on file Minutes per session: Not on file ? Stress: Not on file Relationships ? Social connections Talks on phone: Not on file Gets together: Not on file Attends islam service: Not on file Active member of club or organization: Not on file Attends meetings of clubs or organizations: Not on file Relationship status: Not on file ? Intimate partner violence Fear of current or ex partner: Not on file Emotionally abused: Not on file Physically abused: Not on file Forced sexual activity: Not on file Other Topics Concern ? Back Care Not Asked ? Bike Helmet Not Asked ? Blood Transfusions No ? Caffeine Concern Not Asked ? Exercise Yes Comment: exercise bike ? Hobby Hazards Not Asked ? International Travel Not Asked ? Service Not Asked ? Occupational Exposure Not Asked ? Seat Belt Not Asked ? Self-Exams Not Asked ? Sleep Concern Not Asked ? Special Diet Not Asked ? Stress Concern Not Asked ? 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 Pets: dogs/cats//chickens/ducks REVIEW OF SYSTEMS: All remaining review of systems was negative. Objective OBJECTIVE: BP (!) 180/80 (BP Location: Left arm, Patient Position: Sitting) | Pulse 82 | Temp 99.4 F (37.4 C) | Ht 5' 5" (1.651 m) | Wt 235 lb 11.2 oz (106.9 kg) | SpO2 92% | BMI 39.22 kg/m GENERAL: alert, fatigued, SOB, coughs frequently. HEENT: bilateral tympanic membrane normal without fluid or infection, neck without nodes, pharynx erythematous without exudate, sinuses non tender and nasal mucosa congested. LUNGS: Bilaterally good air entry, R base rales and rhonchi, L base rales. HEART: regular rate and rhythm, S1, S2 normal, no murmur, click, rub or gallop. Rapid strep-: negative ICD-9-CM ICD-10-CM 1. Acute bronchitis, unspecified organism Possible pneumonia 466.0 J20.9 2. Sore throat 462 J02.9 STREP A ANTIGEN (AMB POCT) THROAT STREP SCREEN CULTURE THROAT STREP SCREEN CULTURE Patient with SOB, possible pneumonia. Multiple cor morbidities Advised to be evaluated at the ER ER provider notified Author: Yisel Selby MD 04/18/2019 17:32 documented in this encounter Plan of Treatment Date Type Specialty Care Team Description 06/25/2019 Office Visit [facility] Shalini King MD [address] [place] [address] [phone] Name Type Priority Associated Diagnoses Date/Time THROAT STREP SCREEN Lab Routine Sore throat 04/18/2019 5:35 PM EDT CULTURE Name Type Priority Associated Diagnoses Order Schedule STREP A ANTIGEN (AMB POCT Routine Sore throat Ordered: 04/18/2019 POCT) THROAT STREP SCREEN Lab Routine Sore throat 1 Occurrences starting CULTURE 04/18/2019 until 10/15/2019 Health Maintenance Due Date Last Done Comments CT Colonography 1945 Colonoscopy 1945 Colorectal Cancer Screening 1945 FIT-DNA 1945 FIT/FOBT 1945 Sigmoidoscopy 1945 DTaP/Tdap/Td Vaccines (1 - 1957 Tdap) DEPRESSION SCREENING 06/26/2019 06/25/2018 FALL RISK ASSESSMENT 06/26/2019 06/25/2018, 06/25/2018 LIPID DISORDER SCREENING 02/27/2020 02/26/2019, 12/25/2018, 12/18/2018, Additional history exists Colonoscopy 04/23/2023 04/22/2013 (Declined) [...] Author Type Problems Progress Blood Pressure Blood 180/80 No Christine, < 150/90 Pressure (04/18/2019 Shalini Lambert, 5:07 PM EDT) Note: This is an individualized treatment (blood pressure) goal for Curtis Wick: Displayed above (on the left) is your goal for blood pressure control. Your most recent blood pressure is also shown above, on the right. You should try to achieve blood pressures that are lower than your goal listed above (on the left). Weight loss vs. 18 Lifestyle 3.3 (04/18/2019 5:07 PM No Shalini King mo max (lbs) >= 10 EDT) Note: This is an individualized lifestyle goal [...] of this encounter Implants Implanted Type Area Investigations Director Device Shelf Model / Identifier Expiration Date Serial / Lot 03.13 Paul - [id number] Diagonal [employer] V[employer]ULAR [id number] / Implanted: Qty: 1 on 11/17/2009 at [facility] [id number] / [id number] documented as of this encounter Results Not on filedocumented in this encounter Visit Diagnoses Diagnosis Sore throat Acute pharyngitis Acute bronchitis, unspecified organism documented in this encounter Insurance Payer Benefit Plan / Subscriber ID Effective Dates Phone Address Type Group MEDICARE MEDICARE PART A & [id number] 2011-Present Medicare B [employer] [id number] 2016-Present [employer] Guarant[employer] Name Account Type Relation to Date of Phone Billing Address Patient Curtis Wick Personal/Family 1945 [address] (Home) [place], [place] [phone] [address] (Work) documented as of this encounter
[2019-04-18 18:40] LABS: Influenza A Molecular Negative (Negative); Influenza B Molecular Negative (Negative)
[2019-04-18 22:12] LABS: ABS Eosinophils 0.4 10^3/ul (0-0.6); ABS Lymphocytes 0.9 10^3/ul (1.0-4.8); ABS Monocytes 0.8 10^3/ul (0-0.8); ABS Neutrophils 4.3 10^3/ul (1.5-7.7); Eosinophil % 5.7 %; Hematocrit 39 % (42-52); Hemoglobin 13.3 g/dL (14.0-18.0); Mean Corpuscular HGB Conc 34 g/dL (31-36); Mean Corpuscular Hemoglobin 31 pg (27-31); Mean Corpuscular Volume 91 fL (80-94); Mean Platelet Volume 7.2 fL (7.4-10.4); Platelet Count 191 10^3/uL (150-450); Red Blood Count 4.31 10^6 /uL (4.18-5.48); Red Cell Distribution Width 16 % (10-15); White Blood Count 6.4 10^3/uL (3.5-10.8)
[2019-04-18 22:37] LABS: Albumin/Globulin Ratio 1.3 (1-3); BUN/Creatinine Ratio 13.7 (8-20); C Reactive Protein 18.47 mg/L (<8.01); Calcium 9.1 mg/dL (8.6-10.3); EGFR Non-African American 77.7 (>60); Potassium 4.1 mmol/L (3.5-5.0); Total Bilirubin 0.9 mg/dL (0.2-1.0)
[2019-04-18 22:42] LABS: Troponin I 0.01 ng/mL (<0.03)
[2019-04-18] MEDS ORDERED: Magnesium Sulfate 2 GM IV* 2 GM/50 ML BAG IVPB ONE (23:17)
[2019-04-18] MEDS ORDERED: methylPREDNISolone 125 MG* 2 ML VIAL IV ONE (23:17)
[2019-04-18] MEDS ORDERED: Albuterol/Ipratropium NEB.SOL* Albuterol 2.5 MG/Ipratropium 0.5 MG 3 ML INH ONE (23:17)
--- NOTE | 2019-04-18 23:37 | ED ---
Shortness of Breath - HPI Summary HPI Summary: 74-year-old male presents with cough for the past 5 days. He denies any fevers or chills. No recent travel. Has not been exposed to anyone sick. He has COPD. States he's been more short of breath. His symptoms are worst when he ambulates. No abdominal pain. No nausea vomiting. He is not on oxygen at home. he admits to sinus congestion and sore throat. he is not on any blood thinners. He denies any weight change. no increase swelling in legs. no history of chf. - History of Current Complaint Chief Complaint: EDFluSymptoms Time Seen by Provider: 04/18/19 22:57 - Allergy/Home Medications Allergies/Adverse Reactions: Allergies Allergy/AdvReac Type Severity Reaction Status Date / Time No Known Allergies Allergy Verified 04/18/19 18:16 Home Medications: Home Medications Dapsone TAB* 100 mg PO QAM 03/01/14 [History Confirmed 02/08/19] Doxazosin TAB* [Cardura TAB*] 4 mg PO QAM 03/01/14 [History Confirmed 02/08/19] Metoprolol Tartrate TAB* [Lopressor TAB*] 25 mg PO BID 03/01/14 [History Confirmed 02/08/19] Amlodipine Besylate/Benazepril [Lotrel 5-20 mg] 1 cap PO QAM 03/07/17 [History Confirmed 02/08/19] Aspirin EC TAB* [Ecotrin EC Low Dose 81 MG*] 81 mg PO QAM 03/07/17 [History Confirmed 02/08/19] Nitroglycerin TAB 0.4 MG* 0.4 mg SL Q5M PRN 03/07/17 [History Confirmed 02/08/19 ] Albuterol HFA INHALER* [Ventolin HFA Inhaler*] 2 puff INH Q4H PRN 30 Days #1 mdi 02/08/19 [Rx] Levofloxacin TAB* [Levaquin TAB*] 750 mg PO DAILY 02/08/19 [History Confirmed ] Rosuvastatin (NF) [Crestor (NF)] 20 mg PO DAILY 02/08/19 [History Confirmed 04/25] DOXYcycline CAP(*) [DOXYcycline 100MG CAP(*)] 100 mg PO BID #14 cap 04/19/19 [Rx ] predniSONE 50 mg TAB [Deltasone 50 mg TAB] 50 mg PO DAILY #4 tab 04/19/19 [Rx] PMH/Surg Hx/FS Hx/Imm Hx Endocrine/Hematology History: Denies: Hx Diabetes Cardiovascular History: Reports: Hx Coronary Artery Disease, Hx Hypercholesterolemia, Hx Hypertension Denies: Hx Pacemaker/ICD Respiratory History: Reports: Hx Pulmonary Embolism - 2009 Denies: Hx Asthma, Hx Chronic Obstructive Pulmonary Disease (COPD) History: Denies: Hx Renal Disease Sensory History: Reports: Hx Cataracts - both eye, Hx Contacts or Glasses - reading glasses Denies: Hx Legally Blind, Hx Deafness, Hx Hearing Aid Opthamlomology History: Reports: Hx Cataracts - both eye, Hx Contacts or Glasses - reading glasses Denies: Hx Legally Blind Psychiatric History: Denies: Hx Panic Disorder - Cancer History Hx Chemotherapy: No - Surgical History Surgery Procedure, Year, and Place: HEART STENT 2009 [facility]. 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 nose surgery as a baby Hx Anesthesia Reactions: No Infectious Disease History: No Infectious Disease History: Denies: History Other Infectious Disease, Traveled Outside the [place] in Last 30 Days - Family History Known Family History: Positive: None Negative: Cardiac Disease, Hypertension, Diabetes - Social History Alcohol Use: Weekly Alcohol Amount: few beers a week Hx Substance Use: No Substance Use Type: Reports: None Hx Tobacco Use: Yes Smoking Status (MU): Former Smoker Amount Used/How Often: smoked for 40-45 years, 2 ppd Review of Systems Negative: Fever, Chills Positive: Nasal Discharge Negative: Chest Pain Positive: Shortness Of Breath, Cough All Other Systems Reviewed And Are Negative: Yes Physical Exam Triage Information Reviewed: Yes Vital Signs On Initial Exam: Initial Vitals Temp Pulse Resp BP Pulse Ox 98.7 F 82 20 176/82 90 04/18/19 18:11 04/18/19 18:11 04/18/19 18:11 04/18/19 18:11 04/18/19 18:11 Vital Signs Reviewed: Yes Appearance: Positive: Well-Appearing Skin: Positive: Warm, Dry Head/Face: Positive: Normal Head/Face Inspection Eyes: Positive: Normal, Conjunctiva Clear ENT: Positive: Pharynx normal, TMs normal Respiratory/Lung Sounds: Positive: Decreased Breath Sounds, Wheezes Cardiovascular: Positive: Normal, RRR Abdomen Description: Positive: Nontender, Soft Bowel Sounds: Positive: Present Musculoskeletal: Positive: Normal Neurological: Positive: Normal Psychiatric: Positive: Normal Procedures - Sedation Patient Received Moderate/Deep Sedation with Procedure: No Diagnostics - Vital Signs Vital Signs Temp Pulse Resp BP Pulse Ox 04/18/19 23:00 75 89 04/18/19 22:57 74 163/96 89 04/18/19 22:15 97.8 F 82 18 181/75 90 04/18/19 19:51 97.8 F 78 20 192/77 90 04/18/19 18:11 98.7 F 82 20 176/82 90 - Laboratory Lab Results: Lab Results 04/18/19 04/18/19 04/18/19 Range/Units 16:20 22:04 22:04 WBC 6.4 (3.5-10.8) 10^3/uL RBC 4.31 (4.18-5.48) 10^6 /uL Hgb 13.3 L (14.0-18.0) g/dL Hct 39 L (42-52) % MCV 91 (80-94) fL MCH 31 (27-31) pg MCHC 34 (31-36) g/dL RDW 16 H (10-15) % Plt Count 191 (150-450) 10^3/uL MPV 7.2 L (7.4-10.4) fL Neut % (Auto) 67.6 % Lymph % (Auto) 14.0 % [place] % (Auto) 12.0 % Eos % (Auto) 5.7 % Baso % (Auto) 0.7 % Absolute Neuts (auto) 4.3 (1.5-7.7) 10^3/ul Absolute Lymphs (auto) 0.9 L (1.0-4.8) 10^3/ul Absolute Monos (auto) 0.8 (0-0.8) 10^3/ul Absolute Eos (auto) 0.4 (0-0.6) 10^3/ul Absolute Basos (auto) 0.0 (0-0.2) 10^3/ul Absolute Nucleated RBC 0.0 10^3/ul Nucleated RBC % 0.0 Sodium 139 (135-145) mmol/L Potassium 4.1 (3.5-5.0) mmol/L Chloride 108 (101-111) mmol/L Carbon Dioxide 24 (22-32) mmol/L Anion Gap 7 (2-11) mmol/L BUN 13 (6-24) mg/dL Creatinine 0.95 (0.67-1.17) mg/dL Est GFR ( Amer) 94.0 (>60) Est GFR (Non-Af Amer) 77.7 (>60) BUN/Creatinine Ratio 13.7 (8-20) Glucose 106 H (70-100) mg/dL Lactic Acid (0.5-2.0) mmol/L Calcium 9.1 (8.6-10.3) mg/dL Total Bilirubin 0.90 (0.2-1.0) mg/dL AST 22 (13-39) U/L ALT 26 (7-52) U/L Alkaline Phosphatase 57 (34-104) U/L Troponin I 0.01 (<0.03) ng/mL C-Reactive Protein 18.47 H (<8.01) mg/L B-Natriuretic Peptide (<=100) pg/mL Total Protein 7.0 (6.4-8.9) g/dL Albumin 4.0 (3.2-5.2) g/dL Globulin 3.0 (2-4) g/dL Albumin/Globulin Ratio 1.3 (1-3) Influenza A (Rapid) Negative (Negative) Influenza B (Rapid) Negative (Negative) 04/18/19 04/18/19 Range/Units 22:04 22:04 WBC (3.5-10.8) 10^3/uL RBC (4.18-5.48) 10^6 /uL Hgb (14.0-18.0) g/dL Hct (42-52) % MCV (80-94) fL MCH (27-31) pg MCHC (31-36) g/dL RDW (10-15) % Plt Count (150-450) 10^3/uL MPV (7.4-10.4) fL Neut % (Auto) % Lymph % (Auto) % [place] % (Auto) % Eos % (Auto) % Baso % (Auto) % Absolute Neuts (auto) (1.5-7.7) 10^3/ul Absolute Lymphs (auto) (1.0-4.8) 10^3/ul Absolute Monos (auto) (0-0.8) 10^3/ul Absolute Eos (auto) (0-0.6) 10^3/ul Absolute Basos (auto) (0-0.2) 10^3/ul Absolute Nucleated RBC 10^3/ul Nucleated RBC % Sodium (135-145) mmol/L Potassium (3.5-5.0) mmol/L Chloride (101-111) mmol/L Carbon Dioxide (22-32) mmol/L Anion Gap (2-11) mmol/L BUN (6-24) mg/dL Creatinine (0.67-1.17) mg/dL Est GFR ( Amer) (>60) Est GFR (Non-Af Amer) (>60) BUN/Creatinine Ratio (8-20) Glucose (70-100) mg/dL Lactic Acid 0.5 (0.5-2.0) mmol/L Calcium (8.6-10.3) mg/dL Total Bilirubin (0.2-1.0) mg/dL AST (13-39) U/L ALT (7-52) U/L Alkaline Phosphatase (34-104) U/L Troponin I (<0.03) ng/mL C-Reactive Protein (<8.01) mg/L B-Natriuretic Peptide 166 H (<=100) pg/mL Total Protein (6.4-8.9) g/dL Albumin (3.2-5.2) g/dL Globulin (2-4) g/dL Albumin/Globulin Ratio (1-3) Influenza A (Rapid) (Negative) Influenza B (Rapid) (Negative) Result Diagrams: 04/18/19 22:04 04/18/19 22:04 Lab Statement: Any lab studies that have been ordered have been reviewed, and results considered in the medical decision making process. - Radiology chest Radiology Interpretation Completed By: ED Physician Summary of Radiographic Findings: left effusion - CT cta CT Interpretation Completed By: Radiologist Summary of CT Findings: 1. No definite filling defect to suggest pulmonary embolus. However, there is poor opacification of the left lower lobe basal segmental branches and tiny peripheral left lower lobe emboli cannot be excluded.. 2. Patchy left lower lobe and ill-defined lingular opacities concerning for pneumonia with an element of volume loss. 3. Emphysema. 4. Enlarged main pulmonary artery suggesting pulmonary arterial hypertension. 5. Coronary artery disease. 6. 2 mm lingular nodule, possibly related to underlying airspace disease. Per Fleischner Society Criteria, if the patient has no risk factors such as smoking or cancer, no further workup is indicated. If they do have risk factors for cancer, followup CT is suggested in one year to assess stability. - EKG No standard instances Cardiac Rate: NL EKG Rhythm: Sinus Rhythm Summary of EKG Findings: sinus rhythm Re-Evaluation - Re-Evaluation First Eval Re-Evaluation Time: 00:39 Change: Improved Comment: lungs CTA Second Eval Re-Evaluation Time: 02:33 Comment: oxygen is at 86 but patient is not SOB and wants to go home Course/Dx - Course Course Of Treatment: 74-year-old male presents with cough for the past 5 days. He denies any fevers or chills. No recent travel. Has not been exposed to anyone sick. He has COPD. States he's been more short of breath. His symptoms are worst when he ambulates. No abdominal pain. No nausea vomiting. He is not on oxygen at home. he admits to sinus congestion and sore throat. he is not on any blood thinners. He denies any weight change. no increase swelling in legs. no history of chf. on exam slight wheezing noted. chest xray normal. wbc normal. troponin .01. d-dimer elevated. ekg sinus rhythm. gave breathing treatment and steriod. flu neg. no risk factors for covid-19 and no fever. CTA shows pnuemonia. will give azithromycin and rocephin. discussed case with dr garduno o2 is between 89 and 93 and will drop to 86 occassionally but is not SOB and feels good. discussed as appears well and not short of breath will discharge. will discharge on doxycyline. patient understands if symptoms worsen to return or if becomes short of breath. patient understand and agrees with plan. - Diagnoses Differential Diagnosis/HQI/PQRI: Positive: Bronchitis, COPD Exacerbation, Pneumonia Provider Diagnoses: Pneumonia Discharge ED - Sign-Out/Discharge Documenting (check all that apply): Patient Departure - Discharge Plan Condition: Stable Disposition: HOME Prescriptions: DOXYcycline CAP(*) [DOXYcycline 100MG CAP(*)] 100 mg PO BID #14 cap predniSONE 50 mg TAB [Deltasone 50 mg TAB] 50 mg PO DAILY #4 tab Patient Education Materials: Pneumonia (ED) Referrals: Shalini King MD [Primary Care Provider] - Additional Instructions: Take doxycycline twice a day for 7 days Take steroid once a day for 4 days Use inhaler every 6 hours for cough Follow up with primary within 5 days Return to ED if develop chest pain, shortness of breath, or any new or worsening symptoms - Billing Disposition and Condition Condition: STABLE Disposition: Home
[2019-04-19] MEDS ORDERED: Iohexol 350* (CONTRAST) 500 ML MDV IV ONE (00:45)
[2019-04-19] MEDS ORDERED: Albuterol/Ipratropium NEB.SOL* Albuterol 2.5 MG/Ipratropium 0.5 MG 3 ML INH ONE (02:00)
[2019-04-19] MEDS ORDERED: cefTRIAXone(*) 1 GM in NS 0.9% 50 ML* 50 ML IVPB ONE (02:16)
[2019-04-19] MEDS ORDERED: Azithromycin 500 mg/250 ml NS 500 MG/250 ML BAG IVPB ONE (02:16)
[2019-04-19] MEDS ORDERED: Azithromycin TAB* 250 MG PO ONE (02:30)
[2019-04-19 03:13] VITALS: BP 155/55
== END 2019-04-19 03:12 | disposition home or self-care (01) ==
LOC: ED 17:58
DX: J18.9 Pneumonia, unspecified organism (principal); E78.00 Pure hypercholesterolemia, unspecified; I25.10 Atherosclerotic heart disease of native coronary artery without angina pectoris; I10 Essential (primary) hypertension; Z95.5 Presence of coronary angioplasty implant and graft; Z79.82 Long term (current) use of aspirin; Z79.899 Other long term (current) drug therapy; Z87.891 Personal history of nicotine dependence
CPT/HCPCS: 36415; 71046; 71275; 80053; 83605; 83880; 84484; 85025; 85379; 86140; 87040; 93005; 96365; 96375; 99283; A9270-GY; J0696; J2930; J3475; Q9967